=== PATIENT | male | born 2000 | race Caucasian/White ===

== ENCOUNTER 2024-05-18 20:05 | Emergency (ER) | payer OTHER ==
[~2024-05-18] VITALS: Ht 167.6 cm; Wt 47.0 kg
[2024-05-18 20:14] VITALS: O2SAT 100
[2024-05-18] MEDS: FLUORESCEIN SODIUM 1MG/STRIP LEFTEYE ONE (20:15)
[2024-05-18] MEDS: TETRACAINE 0.5% OPHTH DROPS 4ML LEFTEYE ONE (20:15)
[2024-05-18] MEDS: TETRACAINE 0.5% OPHTH DROPS 4ML EACHEYE ONE (22:45)
[2024-05-18] MEDS ORDERED: MOXI3DRO12 LEFTEYE (23:08)
[2024-05-18 23:52] VITALS: BP 122/76; PULSE 80; RESP 16; TEMP 98.1
== END 2024-05-18 23:53 | disposition home or self-care (01) ==
LOC: ER 20:05
DX: H57.8A2 Foreign body sensation, left eye (principal)
CPT/HCPCS: 99283